=== PATIENT | female | born 1990 ===

== ENCOUNTER 2016-10-12 20:12 | Emergency (ER) | payer MEDICAID ==
[2016-10-12 20:24] VITALS: BP 117/69; PULSE 82; RESP 18; TEMP 98.5; O2SAT 100
--- NOTE | 2016-10-12 21:04 | ED PDOC ---
HPI: General Adult Time Seen by Provider: 10/12/16 20:34 Chief Complaint (Nursing): Flu-like Symptoms Chief Complaint (Provider): Sore throat, Nausea, Vomiting, Diarrhea History Per: Patient History/Exam Limitations: no limitations Onset/Duration Of Symptoms: Days (three) Have you had recent travel within the past 21 days to any of the following countries: [place], [place], [place] or [place]?: No Current Symptoms Are (Timing): Still Present Severity: Moderate Additional Complaint(s): Pt. here today complaining of nausea, non-bloody vomiting, and diarrhea for past three days. Pt. states 5 days ago had a sore throat and saw her PMD Dr. Marin and was prescribed a medication after he examined her nose but stopped taking it because did not feel better. Pt. reports still has sore throat but denies any cough, fever, chills, dysphagia. Pt. also report episode of vomiting this afternoon approximatley at 4p.m. shortly after eating beans and rice. This morning she only drank Kambucha. Pt. also repots have 2 loose non-bloody bowel movement yesterday. On ROS, pt. denies any chest pain, abdominal pain, flank pain, dysuria, hematuria, vaginal discharge, vaginal bleeding, joint pain, headache, or visual disturbances. Pt. report LMP on September 30, 2016. Past Medical History Vital Signs: Last Vital Signs Temp 98.5 F 10/12/16 20:21 Pulse 82 10/12/16 20:21 Resp 18 10/12/16 20:21 BP 117/69 10/12/16 20:21 Pulse Ox 100 10/12/16 21:42 - Medical History PMH: No Chronic Diseases Denies: Chronic Kidney Disease - Surgical History Surgical History: No Surg Hx - Family History Family History: States: No Known Family Hx - Living Arrangements Living Arrangements: With Family (Family History not contributory) - Social History Current smoker - smoking cessation education provided: No Alcohol: None Drugs: Denies - Home Medications Home Medications: Ambulatory Orders Medication Instructions Recorded Amoxicillin 875 mg PO BID #14 tab 02/15/16 Ibuprofen 600 mg PO Q6 PRN #20 tablet 02/15/16 - Allergies Allergies/Adverse Reactions: Allergies Allergy/AdvReac Type Severity Reaction Status Date / Time No Known Allergies Allergy Verified 03/05/16 12:53 Review of Systems Constitutional: Negative for: Fever, Chills Eyes: Negative for: Pain, Vision Change ENT: Negative for: Ear Pain, Ear Discharge, Nose Pain, Nose Discharge Cardiovascular: Negative for: Chest Pain, Palpitations Respiratory: Negative for: Cough, Shortness of Breath, Hemoptysis Gastrointestinal: Positive for: Nausea, Vomiting, Diarrhea. Negative for: Abdominal Pain, Melena, Hematochezia, Hematemesis Musculoskeletal: Negative for: Neck Pain, Shoulder Pain, Arm Pain Skin: Negative for: Rash, Lesions Neurological: Negative for: Weakness, Numbness, Incoordination, Change in Speech Psych: Negative for: Anxiety, Depression Physical Exam - Reviewed Vital Signs Reviewed: Yes - Physical Exam Appears: Positive for: Non-toxic, No Acute Distress Head Exam: Positive for: ATRAUMATIC, NORMOCEPHALIC ENT: Positive for: Normal ENT Inspection, Nasal Congestion. Negative for: Pharyngeal Erythema, Tonsillar Exudate, Tonsillar Swelling Neck: Positive for: Painless ROM, Supple Cardiovascular/Chest: Positive for: Regular Rate, Rhythm. Negative for: Murmur Respiratory: Positive for: Normal Breath Sounds. Negative for: Decreased Breath Sounds, Wheezing, Respiratory Distress Gastrointestinal/Abdominal: Positive for: Soft. Negative for: Tenderness Back: Negative for: L CVA Tenderness, R CVA Tenderness Extremity: Negative for: Tenderness, Pedal Edema - ECG O2 Sat by Pulse Oximetry: 100 - Progress ED Course And Treament: Urine Zofran 4mg PO PO challange Re-evaluation Time: 21:39 Condition: Improved (Tolerating PO fluids) Medical Decision Making Medical Decision Makin y.o. female with no significant PMHx with acute onset viral gastroenteritis given Zofran and PO challenge. Pt. is urine test negative. Pt. successfully completed PO challenge and tolerating PO fluids. Disposition - Clinical Impression Clinical Impression: Gastroenteritis and colitis, viral - Patient ED Disposition Is Patient to be Admitted: No Discussed With : Jami Kearney - Disposition Disposition: Routine/Home Disposition Time: 21:40 Condition: GOOD Additional Instructions: Return to ER if symptoms worsen. Follow up with PMD in 2 to 3 days.
== END 2016-10-12 22:30 | disposition home or self-care (01) ==
LOC: H.ER 20:12
DX: A08.4 Viral intestinal infection, unspecified (principal)